=== PATIENT | female | born 1990 | race Caucasian/White ===

== ENCOUNTER 2017-04-20 10:42 | Emergency (ER) | payer OTHER ==
[~2017-04-20] VITALS: Ht 162.6 cm; Wt 72.6 kg
[~2017-04-20 10:42] MED LIST: PRENATAL COMPL1 EACH PO
[2017-04-20] MEDS ORDERED: CIPRO250 MG PO (12:17)
[2017-04-20] MEDS ORDERED: ZOFRAN ODT4 MG PO (12:17)
[2017-04-20] MEDS ORDERED: NORCO 5-325 TA1 EACH PO (12:17)
== END 2017-04-20 12:44 | disposition home or self-care (01) ==
LOC: ED 10:42
DX: N39.0 Urinary tract infection, site not specified (principal); Z87.891 Personal history of nicotine dependence
CPT/HCPCS: 80053; 81001; 82150; 83690; 84703; 85025; 96361; 96374; 96375; 99283; J1885; J2405; J7030